=== PATIENT | male | born 1975 | race Caucasian/White ===

== ENCOUNTER 2019-11-20 11:20 | Inpatient (IN) | payer OTHER ==
[2019-11-20] MEDS ORDERED: Ondansetron PF 4 MG/2 ML Vial ONE (11:52)
[2019-11-20] MEDS ORDERED: Lidocaine Viscous Sol 2% 15 ml UD Cup ONE (11:52)
[2019-11-20] MEDS ORDERED: Ketorolac Tromethamine 30 MG/ML VIAL ONE (11:52)
[2019-11-20] MEDS ORDERED: Mag-Al 1200 mg/1200 mg/30 ML UDCUP ONE (11:52)
[2019-11-20 12:14] LABS: #Eosinphils 0.1 thou/uL (0.0-0.7); #Lymphocytes 1.8 thou/uL (1.20-3.40); #Monocytes 0.7 thou/uL (0.11-0.59); #Neutrophils 4.4 thou/uL (1.40-6.50); %Basophils 0.6 % (0.0-1.0); %Eosinophils 1.1 % (0.0-10.0); %Lymphocytes 25.7 % (21.0-51.0); %Monocytes 10.3 % (0.0-10.0); %Neutrophils 62.4 % (42.0-75.0); Hemoglobin 17.3 g/dL (14.0-18.0); Mean Corpuscular HGB CONC 31.7 g/dL (32.0-36.0); Mean Corpuscular Hemoglobin 29.2 pg (27.0-31.0); Mean Corpuscular Volume 91.9 fL (78.0-98.0); Mean Platelet Volume 8.6 fL (7.4-10.4); Platelet Count 272 thou/uL (130-400); RBC Distribution Width 13.2 % (11.5-14.5); Red Blood Cell (RBC) Count 5.92 mill/uL (4.70-6.10); White Blood Cell (WBC) Count 7.1 thou/uL (4.8-10.8)
[2019-11-20 12:19] LABS: ALT (SGPT) 278 U/L (8-55); AST (SGOT) 129 U/L (5-34); Albumin 4.5 g/dL (3.5-5.0); Alkaline Phosphatase 239 U/L (40-110); Anion Gap 20 mmol/L (10-20); BUN (Urea Nitrogen) 16 mg/dL (8.9-20.6); Bilirubin, Total 15.7 mg/dL (0.2-1.2); Calc. Creatinine Clearance 0 mL/min (70-130); Calcium 10.5 mg/dL (7.8-10.44); Carbon Dioxide 22 mmol/L (22-29); Chloride 98 mmol/L (98-107); Estimated GFR-MDRD 64; Glucose 110 mg/dL (70-105); Potassium 3.7 mmol/L (3.5-5.1); Protein, Total 8.5 g/dL (6.0-8.3); Sodium 136 mmol/L (136-145)
[2019-11-20 12:45] LABS: Lipase 9037 U/L (8-78)
[2019-11-20] MEDS ORDERED: Lorazepam 2 MG/ML VIAL ONE (12:57)
[2019-11-20 13:19] LABS: Bilirubin 2+ (Negative); Blood, Urine Negative (Negative); Clarity Turbid (Clear); Glucose, Urine (Dipstick) Normal (Negative); Leukocyte Negative Leu/uL (Negative); Nitrite Negative (Negative); Protein, Urine (Dipstick) 10 mg/dL (Neg-Trace); Urobilinogen Normal mg/dL (Less than 2)
[2019-11-20] MEDS ORDERED: Morphine 2 MG/ML SYRINGE SLOW IVP PRN (13:27)
[2019-11-20] MEDS ORDERED: hydrALAZINE 20 MG/ML VIAL SLOW IVP PRN (13:27)
[2019-11-20] MEDS ORDERED: Ondansetron PF 4 MG/2 ML Vial IVP PRN (13:27)
[2019-11-20] MEDS ORDERED: Lactated Ringer's 1,000 ML IV SCH (13:30)
[2019-11-20] MEDS ORDERED: Sodium Chloride 0.9% 1,000 ML IV SCH (13:30)
[2019-11-20] MEDS ORDERED: Ketorolac Tromethamine 30 MG/ML VIAL IVP SCH (14:15)
--- NOTE | 2019-11-20 14:39 | ULT ---
RIGHT UPPER QUADRANT ABDOMINAL ULTRASOUND: COMPARISON: None. HISTORY: Right upper quadrant pain and jaundice. TECHNIQUE: Multiplanar, rosenbaum scale, and color Doppler images were obtained in a right upper quadrant abdominal u ltrasound. FINDINGS: The liver is normal in echogenicity without focal lesions or intrahepatic ductal dilatation. There a re shadowing structures in the gallbladder which may represent gallstones. There is questionable dir ty shadowing and air within the gallbladder or gallbladder cannot be definitely excluded. There is n o gallbladder wall thickening or pericholecystic fluid. The common bile duct is normal measuring 4 m m. The pancreas could not be seen secondary to bowel gas. The right kidney is normal in echogenicity wi thout hydronephrosis or calculus and measured 11.2 cm in length. IMPRESSION: Cholelithiasis. Air within the gallbladder/gangrenous cholecystitis cannot be entirely excluded. A CT of the abdomen and pelvis with contrast is recommended for further evaluation. POS: EAA
--- NOTE | 2019-11-20 14:52 | HP ---
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 He has had similar episodes of less severe pain and was seen in [place] several months ago, and told he had gallstones. He did not have insurance, however, and could not tend to this. In the emergency room, he was evaluated and ultrasound revealed multiple gallstones with common bile duct of 3.8 mm. White count 7 and hemoglobin 17. Sodium 136, BUN and creatinine of 16 and 1.24, bilirubin is 15, AST 129, ALT 278, alkaline phosphatase 239, and lipase 9037. ALLERGIES: NONE. HABITS: Tobacco, cigars occasionally, almost daily use until the last week. Alcohol, 2 whiskeys twice a week, has not had any in a week. PAST SURGICAL HISTORY: Laparoscopic sleeve gastrectomy 2-3 years ago in the [facility], where he lives, more than 100-pound weight loss, resolving diabetes and hypertension. PAST MEDICAL HISTORY: Noncontributory. Diabetes and hypertension resolved after successful weight loss surgery. REVIEW OF SYSTEMS: Ten-point noncontributory. PHYSICAL EXAMINATION: VITAL SIGNS: Blood pressure 140/70, heart rate 88, respiratory rate 18. HEAD, EARS, EYES, NOSE, AND THROAT: Unremarkable. Sclerae icteric. LUNGS: Clear to auscultation. No wheezing. CARDIAC: Regular rate and rhythm. ABDOMEN: Soft. Tenderness in his upper abdomen, right upper quadrant, epigastrium. EXTREMITIES: Unremarkable. No ankle edema. LABORATORY DATA: As noted. ASSESSMENT AND PLAN: 1. Bariatric surgery status, status post sleeve gastrectomy with successful weight loss. 2. Cholelithiasis. 3. Pancreatitis. 4. Jaundice. RECOMMENDATIONS: Aggressive fluid hydration. Recheck liver function tests. Suspect biliary pancreatitis, although bilirubin is markedly elevated without common bile duct dilatation. We will see what his LFTs are tomorrow after aggressive fluid hydration and plan laparoscopic cholecystectomy, cholangiogram pending clinical course and laboratory testing tomorrow. Job ID: [id number]
[2019-11-20] MEDS: Morphine 4 MG/ML VIAL SLOW IVP PRN ×2 (15:39→21:12)
[2019-11-20] MEDS: Sodium Chloride 0.9% 1,000 ML IV SCH ×2 (15:39→18:27)
[2019-11-20] MEDS: Ketorolac Tromethamine 30 MG/ML VIAL IVP SCH (18:26)
[2019-11-20] MEDS: Enoxaparin Sodium 40 MG/0.4 ML SYRINGE SC SCH (21:14)
[2019-11-21] MEDS: Ketorolac Tromethamine 30 MG/ML VIAL IVP SCH ×4 (00:18→17:37)
[2019-11-21] MEDS: Sodium Chloride 0.9% 1,000 ML IV SCH ×3 (02:55→16:06)
[2019-11-21 06:02] LABS: ALT (SGPT) 171 U/L (8-55); AST (SGOT) 77 U/L (5-34); Albumin 3.3 g/dL (3.5-5.0); Alkaline Phosphatase 187 U/L (40-110); Anion Gap 15 mmol/L (10-20); BUN (Urea Nitrogen) 14 mg/dL (8.9-20.6); Calc. Creatinine Clearance 198 mL/min (70-130); Calcium 8.8 mg/dL (7.8-10.44); Carbon Dioxide 20 mmol/L (22-29); Chloride 105 mmol/L (98-107); Estimated GFR-MDRD Greater than 90; Globulin 3.3 g/dL (2.4-3.5); Glucose 90 mg/dL (70-105); Potassium 4.2 mmol/L (3.5-5.1); Protein, Total 6.6 g/dL (6.0-8.3); Sodium 136 mmol/L (136-145)
[2019-11-21 06:17] LABS: Lipase 3148 U/L (8-78)
[2019-11-21] MEDS ORDERED: Fentanyl 100 MCG/2 ML VIAL ONE ×3 (06:23→11:19)
[2019-11-21] MEDS ORDERED: Iothalamate Meglumine 60% 30 ML VIAL FS ONE ×2 (06:40→09:17)
[2019-11-21] MEDS ORDERED: Bupivacaine PF 0.5% 30 ML VIAL ONE (06:40)
[2019-11-21] MEDS ORDERED: Lidocaine 1% w/Epinephrine 1:100K 20 ML VIAL ONE (06:40)
[2019-11-21] MEDS ORDERED: Promethazine HCl 25 MG/ML VIAL SLOW IVP PRN (07:15)
[2019-11-21] MEDS ORDERED: PACU-Morphine 4MG/ML VIAL SLOW IVP PRN (07:15)
[2019-11-21] MEDS ORDERED: Ondansetron HCl/PF 4 MG/2 ML Vial IVP PRN (07:15)
[2019-11-21] MEDS ORDERED: Promethazine HCl 25 MG/ML VIAL IM PRN (07:15)
[2019-11-21] MEDS ORDERED: Meperidine HCl/PF 25 MG/ML VIAL SLOW IVP PRN (07:15)
[2019-11-21] MEDS ORDERED: Morphine Sulfate 2 MG/ML SYRINGE SLOW IVP PRN (07:15)
[2019-11-21] MEDS ORDERED: HYDROmorphone 2 MG/ML VIAL SLOW IVP PRN (07:15)
--- NOTE | 2019-11-21 09:37 | RAD ---
Exam: Intraoperative cholangiogram Exposure: 6.24 mg. 30 seconds FINDINGS: 2 intraoperative fluoroscopic images demonstrate cannulation of the cystic duct. Contrast o pacifies a normal caliber intrahepatic and extra hepatic biliary system. No obvious filling defects. Contrast is noted in the duodenum. IMPRESSION: Intraoperative fluoroscopy as above.
[2019-11-21] MEDS ORDERED: hydrALAZINE 20 MG/ML VIAL ONE (10:15)
[2019-11-21] MEDS ORDERED: Ketorolac Tromethamine 30 MG/ML VIAL IVP PRN (10:17)
[2019-11-21] MEDS ORDERED: Acetaminophen 500 MG TAB PO PRN (10:17)
[2019-11-21] MEDS ORDERED: traMADol HCl 50 MG TAB PO PRN ×2 (10:17)
[2019-11-21] MEDS ORDERED: Succinylcholine Chloride 20 MG/ML 10 ml SYRINGE FS ONE (11:28)
[2019-11-21] MEDS ORDERED: Ondansetron PF 4 MG/2 ML Vial ONE (11:28)
[2019-11-21] MEDS ORDERED: Lidocaine 1% PF 5 ML VIAL ONE (11:28)
[2019-11-21] MEDS ORDERED: Rocuronium Bromide 10 MG/ML (10ML VIAL) ONE (11:28)
[2019-11-21] MEDS ORDERED: Dexamethasone 20 MG/5 ML VIAL ONE (11:28)
[2019-11-21] MEDS ORDERED: PROPOFOL 200 MG/20 ML VIAL ONE (11:28)
[2019-11-21] MEDS ORDERED: Glycopyrrolate 0.2 MG/ML 5 ML SYRINGE ONE (11:28)
--- NOTE | 2019-11-21 12:18 | OP ---
DATE OF PROCEDURE: 11/21/2019 PREOPERATIVE DIAGNOSES: Biliary pancreatitis, suspect choledocholithiasis (common bile duct 4 mm by ultrasound, bilirubin 16 on admission, transaminases mid upper 100s on admission, history of alcohol use but none in the last [id number] prior to this presentation). POSTOPERATIVE DIAGNOSES: Biliary pancreatitis, suspect choledocholithiasis (common bile duct 4 mm by ultrasound, bilirubin 16 on admission, transaminases mid upper 100s on admission, history of alcohol use but none in the last qbnz-lvy-m-half prior to this presentation), cholecystitis, chronic and acute cholelithiasis, pancreatitis, choledocholithiasis. PROCEDURE PERFORMED: Laparoscopic video cholecystectomy, cholangiograms positive with distal filling defects although contrast into the duodenum. Core liver biopsy, laparoscopically visualized, normal-appearing liver (history of laparoscopic sleeve gastrectomy with significant weight loss and resolution of diabetes and hypertension with fatty liver, documented preoperatively for bariatric surgery). ANESTHESIA: General, fluoroscopy use, local anesthetic 0.5% Marcaine 30 mL mixed with 2% Xylocaine 20 mL. DESCRIPTION OF PROCEDURE: The patient was taken to the operating room where under general anesthesia, abdomen was clipped of hair, prepared with ChloraPrep and draped in routine fashion. Local anesthetic was infiltrated in the skin and subcutaneous tissue about the operative sites. Infraumbilical incision made. Pneumoperitoneum to 15 mmHg obtained with a Veress needle, replaced with a 5 port, laparoscope inserted. Right subxiphoid incision was made and an 11 port placed. Right subcostal incision was made at midclavicular entrance line, 5 port placed. The gallbladder was acutely inflamed with edematous wall. Liver appeared to be normal. Fundus of the gallbladder was grasped at the cephalad and omental adhesions taken down with blunt and sharp dissection, using cautery for hemostasis, dissecting the cystic artery and duct free with a critical view obtained. Cystic duct was dilated. Cystic artery was doubly clipped proximally and the cystic duct singly clipped on the gallbladder side, although clip would not reach across it and it was incompletely occluded. Opening made in the cystic duct. The patient had been given glucagon by Anesthesia. Cystic duct remnants milked retrograde noting a few stone debris milked out. Cholangiocatheter inserted and cholangiogram was obtained. Initially flushed catheter with saline solution and then with contrast, under fluoroscopy cholangiograms revealed a slightly dilated common bile duct emptying into the duodenum without identification of tapering and suspect choledocholithiasis. Bile duct was irrigated with saline and cholangiogram was repeated again. These filling defects persisted suggesting choledocholithiasis. Once the cholangiograms were complete, cholangiocatheter removed, and cystic ducts too broad to be occluded by clips. Thus, an 11 mm subxiphoid port exchanged for 12 port and cystic duct divided with the Endo-EMMIE 45 white load stapler. Stapled cystic duct was secure and cystic artery divided between clips and the gallbladder dissected free from inflammatory adhesions from the liver bed obtaining good hemostasis. Removed the gallbladder and contents and submitted to Pathology. Good hemostasis assured with cautery. Core liver biopsies obtained with core biopsy gun from the right lobe laterally. Obtain two good cores. Hemostasis gained with cautery. Irrigant and pneumoperitoneum were evacuated. All instruments were removed. All skin incisions were approximated with interrupted subdermal 4-0 Monocryl and [place] glue applied. Dr. Oneal had been consulted and plans for an ERCP tomorrow. Job ID: [id number]
[2019-11-21] MEDS: Lactated Ringer's 1,000 ML IV SCH ×2 (13:25→20:36)
[2019-11-21] MEDS: Pantoprazole 40 MG VIAL IVP SCH (13:26)
--- NOTE | 2019-11-21 14:26 | EKG ---
Test Reason : Blood Pressure : / mmHG Vent. Rate : 075 BPM Atrial Rate : 075 BPM P-R Int : 184 ms QRS Dur : 086 ms QT Int : 382 ms P-R-T Axes : 046 030 044 degrees QTc Int : 426 ms Normal sinus rhythm Normal ECG Confirmed by RADHA JOHNSON DO ([id number]), scientific editor JAYDON DRAPER ([id number]) on 11/21/2019 2:25:29 PM Referred By: Confirmed By:RADHA JOHNSON DO
[2019-11-21] MEDS: Morphine 4 MG/ML VIAL SLOW IVP PRN (14:45)
[2019-11-21] MEDS: Enoxaparin Sodium 40 MG/0.4 ML SYRINGE SC SCH (20:30)
[2019-11-22] MEDS: Ketorolac Tromethamine 30 MG/ML VIAL IVP SCH ×3 (00:11→11:32)
[2019-11-22] MEDS: Lactated Ringer's 1,000 ML IV SCH ×4 (02:27→13:37)
[2019-11-22 05:22] LABS: #Basophils 0.1 thou/uL (0.0-0.2); #Lymphocytes 1.1 thou/uL (1.20-3.40); #Monocytes 0.8 thou/uL (0.11-0.59); #Neutrophils 8.7 thou/uL (1.40-6.50); %Basophils 1.1 % (0.0-1.0); %Eosinophils 0.1 % (0.0-10.0); %Lymphocytes 9.9 % (21.0-51.0); %Monocytes 7.8 % (0.0-10.0); %Neutrophils 81.1 % (42.0-75.0); Hemoglobin 14.5 g/dL (14.0-18.0); Mean Corpuscular HGB CONC 33.6 g/dL (32.0-36.0); Mean Corpuscular Hemoglobin 31.2 pg (27.0-31.0); Mean Platelet Volume 8.3 fL (7.4-10.4); Platelet Count 217 thou/uL (130-400); RBC Distribution Width 13.3 % (11.5-14.5); Red Blood Cell (RBC) Count 4.65 mill/uL (4.70-6.10); White Blood Cell (WBC) Count 10.7 thou/uL (4.8-10.8)
[2019-11-22 05:42] LABS: ALT (SGPT) 165 U/L (8-55); AST (SGOT) 108 U/L (5-34); Albumin 3.1 g/dL (3.5-5.0); Alkaline Phosphatase 186 U/L (40-110); Anion Gap 13 mmol/L (10-20); BUN (Urea Nitrogen) 10 mg/dL (8.9-20.6); Bilirubin, Total 10.5 mg/dL (0.2-1.2); Calc. Creatinine Clearance 223 mL/min (70-130); Calcium 8.9 mg/dL (7.8-10.44); Carbon Dioxide 23 mmol/L (22-29); Chloride 104 mmol/L (98-107); Estimated GFR-MDRD Greater than 90; Globulin 3.1 g/dL (2.4-3.5); Glucose 121 mg/dL (70-105); Protein, Total 6.2 g/dL (6.0-8.3); Sodium 136 mmol/L (136-145)
[2019-11-22 05:55] LABS: Lipase 1803 U/L (8-78)
[2019-11-22 06:01] LABS: HBCM Index 0.04 S/CO (0-0.79); HBSAg Index 0.26 S/CO (0-0.99); Hep A IgM AB Non-Reactive (NonReactive); Hep A IgM S/CO 0.22 S/CO (0-0.79); Hep B Surf Ag Non-Reactive S/CO (NonReactive); Hep C IgG Ab Non-Reactive (NonReactive); Hepatitis B Core IgM Abs Non-Reactive (NonReactive)
--- NOTE | 2019-11-22 08:53 | CON ---
DATE OF CONSULTATION: 11/21/2019 REASON FOR CONSULTATION: Abnormal LFTs and possible common bile duct stone. As per Dr. Woods, he felt there was an abdominal cholangiogram with some filling defects. HISTORY OF PRESENT ILLNESS: Mr. Chevy Persaud is a 44-year-old male, who lives near [place], [place]. He does come to [facility] for business related purposes. The patient has noted gallstones from before. He did not have surgery because of lack of finances. He has history of diabetes mellitus, hypertension in the past. He had a gastric sleeve surgery in 2017 and has lost more than 100 pounds. Since weight loss, he does not take any medicines for diabetes or hypertension. The patient developed severe abdominal pain with some nausea and some retching yesterday. He was seen in the ER and was found to have evidence of a gallstone pancreatitis and also abnormal LFTs. His serum lipase was elevated to 9037. Today it has come down to 3148. His abdominal pain has markedly improved. He underwent a laparoscopic cholecystectomy by Dr. Andrés Woods. He underwent a cholangiogram and Dr. Woods felt there was some filling defects. However, the contrast freely flowed into the duodenum. There was no bile duct dilatation. He has a radiologist, who does not think there is any retained stone. There is a possibility of injected air bubbles. The patient was seen in the room after his laparoscopic cholecystectomy this afternoon. He is awake, alert, and communicative. Feeling a whole lot better. He has abdominal soreness from the surgery from this morning. The severe pain has actually resolved. He has no relevant symptoms. ALLERGIES: NONE. SOCIAL HISTORY: The patient smokes cigars. He also drinks two shots of whiskey every three times a week. No history of drug abuse. MEDICAL ILLNESS: 1. Obesity, status post gastric surgery with weight loss. 2. Diabetes mellitus. 3. Hypertension. 4. History of fatty liver. PAST SURGICAL HISTORY: None except laparoscopic cholecystectomy this morning. FAMILY HISTORY: Mother had gallstones and hypertension. Father had diabetes mellitus. Grandmother had her gallbladder removed. No family history of any cancer. REVIEW OF SYSTEMS: Unremarkable except for abdominal pain, nausea, retching etc. PHYSICAL EXAMINATION: GENERAL: He appears very comfortable. He is awake, alert, communicative. VITAL SIGNS: He is afebrile. Pulse is 94, blood pressure 150/92. He is icteric. NECK: Supple. No adenitis or thyromegaly noted. CARDIOVASCULAR SYSTEM: First and second heart sounds heard. LUNGS: Clear to auscultation. ABDOMEN: Nondistended. Soft. He is mildly tender across the abdomen. There is no rebound or guarding. He has active bowel sounds. EXTREMITIES: No edema. LABORATORY DATA: From yesterday; lytes are normal. BUN is 16, creatinine is 1.24, glucose 110, calcium 10.5, bilirubin 15.7, AST 129, ALT 278, alkaline phosphatase 239, albumin 4.5. Today, liver function tests are coming down, bilirubin down to 14, AST 77, ALT 171, alkaline phosphatase 187. Serum lipase yesterday was 9037, today 3148. His CBC is actually normal. Hemoglobin 17.3, hematocrit 54.4, MCV 91.9, platelet count 272,000. Abdominal sonogram showed gallstone, but no dilation of common bile duct. CBD measured only about 3.8 mm. A cholangiogram done today shows questionable filling defects, but the contrast flows freely into the duodenum. The radiologist does not feel that there is definitely retained gallstones, although there is some shadowing seen. CLINICAL IMPRESSION: 1. Gallstone pancreatitis, status post surgery, questionable abnormal cholangiogram. 2. History of fatty liver. 3. Diabetes mellitus. 4. Hypertension. 5. Obesity, status post gastric surgery with weight loss. 6. Gallstone pancreatitis seems to be getting better. I had a long talk with the patient explaining about the equivocal findings of the cholangiogram. The liver function tests that we had are proportionate for some of the common bile duct stone. It is possible that the patient could have passed a common bile duct stone. The duct is not dilated and also the contrast was freely flowing into the duodenum during cholangiogram. This was discussed with the patient. I explained to him that we will repeat the liver function tomorrow and depending upon the numbers, we will decide whether he needs ERCP. Other option is he could have an MRCP.However, if positive will need ERCP . RECOMMENDATION: 1. Obtain hepatitis markers. 2. Repeat LFTs and decide whether he needs ERCP tomorrow. Job ID: [id number] MTDD
[2019-11-22] MEDS ORDERED: Iothalamate Meglumine 60% 30 ML VIAL FS ONE ×2 (09:21→10:08)
[2019-11-22] MEDS ORDERED: Indomethacin 50 MG SUPP ONE ×2 (09:26→09:27)
[2019-11-22] MEDS ORDERED: Aspirin 325 mg Enteric Coated Tablet ONE (09:26)
[2019-11-22] MEDS ORDERED: Midazolam HCl 2 mg/2 ml Vial ONE (09:29)
[2019-11-22] MEDS ORDERED: Fentanyl 100 MCG/2 ML VIAL ONE (09:29)
--- NOTE | 2019-11-22 11:17 | RAD ---
ERCP X-RAY: COMPARISON: Gallbladder ultrasound from 11/20/2019. FINDINGS: Multiple images were obtained from the fluoroscopy suite. IMPRESSION: Fluoroscopy for procedural purposes. POS: HOME
[2019-11-22] MEDS ORDERED: Glycopyrrolate 0.2 MG/ML 5 ML SYRINGE ONE (11:51)
[2019-11-22] MEDS ORDERED: Succinylcholine Chloride 20 MG/ML 10 ml SYRINGE FS ONE (11:51)
[2019-11-22] MEDS ORDERED: Lidocaine 1% PF 5 ML VIAL ONE (11:51)
[2019-11-22] MEDS ORDERED: Ondansetron PF 4 MG/2 ML Vial ONE (11:51)
[2019-11-22] MEDS ORDERED: PROPOFOL 200 MG/20 ML VIAL ONE (11:51)
[2019-11-22] MEDS ORDERED: Rocuronium Bromide 10 MG/ML (10ML VIAL) ONE (11:51)
--- NOTE | 2019-11-22 12:25 | OP ---
DATE OF PROCEDURE: 11/22/2019 PROCEDURES PERFORMED: 1. Endoscopic retrograde cholangiopancreatography with papillotomy. 2. Endoscopic retrograde cholangiopancreatography with balloon extraction of common bile duct stones x3. PREOPERATIVE DIAGNOSES: Gallstone pancreatitis, abnormal liver function tests, abnormal cholangiogram. POSTOPERATIVE DIAGNOSES: 1. The common bile duct is nondilated. 2. There were no definite filling defects seen, but after the papillotomy and passing the balloon, there were 3 pigmented stones removed. DESCRIPTION OF PROCEDURE: The patient was intubated and was given sedation by Anesthesia Department. The patient was given Indocin 50 mg suppository prophylactically before the procedure. The patient was transferred to the fluoroscopy table and turned onto left lateral position and then on his stomach. A bite block was placed. A [employer] video duodenoscope under direct vision was passed down to the oropharynx past the GE junction into the stomach and subsequently descending duodenum. The papilla was identified. The papilla was cannulated over a guidewire selectively without any difficulty. Upon injection of contrast, I do not appreciate any filling defects There was something on fluoroscopy. On recovery, I did get a good view of the bile duct and no definite filling defects. Initially, the contrast was selected with saline. However, after receiving the full strength contrast, the injection again showed a normal caliber bile duct, but no definite filling defects. Because of the operative cholangiogram showing filling defects, I decided to go on with a papillotomy. The papillotomy was made at 12 o'clock position. A generous papillotomy to about 1.5 cm was made. Following the papillotomy, a brisk bile and also two bile duct stones came out. The stones appeared pigmented and measured more probably about 8 to 9 mm. The papillotome was changed to balloon, size 9 to 12 mm. The balloon was inflated and brought across the papilla several times. There was one more stone extracted. Occlusion cholangiogram showed no more filling defects. Also, the bile duct emptied properly. The stomach decompressed and the scope removed. RECOMMENDATIONS: 1. Discontinue n.p.o. 2. Clear liquid diet. 3. Repeat LFTs tomorrow. If he does well without any complications, consider discharge home tomorrow. Job ID: [id number] [facility]
[2019-11-22] MEDS: Pantoprazole 40 MG VIAL IVP SCH (13:36)
[2019-11-22] MEDS ORDERED: Ibuprofen 600 MG TAB PO PRN (16:36)
[2019-11-22 19:41] VITALS: BP 159/89; TEMP 98.6
--- NOTE | 2019-11-23 03:11 | DIS ---
DATE OF ADMISSION: 11/20/2019 DATE OF DISCHARGE: 11/22/2019 DISCHARGE DIAGNOSES: Cholecystitis, acute on chronic cholelithiasis, choledocholithiasis, biliary pancreatitis, and obesity. PROCEDURES DURING THIS HOSPITALIZATION: Ultrasound of the gallbladder, laparoscopic video cholecystectomy, cholangiograms that I felt were positive with filling defects; however, radiology read them as normal. On 11/22/2019, Dr. Oneal performed ERCP with stone extraction. Note, admission bilirubin 15.7, morning of his cholecystectomy 14, postoperative cholecystectomy and just prior to ERCP with stone extraction bilirubin 10.5. AST and ALT are 108 and 165 respectively on discharge. Lipase 9037 on admission, on discharge 1803. HISTORY: A 44-year-old male patient with biliary symptoms, having had an ultrasound performed in the emergency room in the [place] area, but he did not have financial resources to tend to this. 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 The patient had severe onset of abdominal pain and presented to [facility] emergency room, undergoing ultrasound noting gallstones, normal bile duct caliber 4 mm and liver function tests are noted above. He was admitted, given intravenous fluids, aggressively hydrated. The next morning, his lipase improved. He is feeling better. He underwent laparoscopic cholecystectomy, cholangiograms that I interpreted are probably filling defects, even though there was emptying into the duodenum and not severely enlarged bile duct. Dr. Oneal was consulted. Radiology interpreted the cholangiogram was normal. By the next morning, the patient's liver function tests slightly improved, nonetheless considering these concerns, ERCP with stone extraction performed, post ERCP same day he is discharged home. He will take [id number] Tylenol, Motrin, and Ultram p.r.n. pain. Ultram 50, #25 given. Diet and activity as tolerated. No lifting restrictions. He is to have liver function tests drawn the morning of office followup. To follow up his liver function test should they returned to normal. Job ID: [id number]
== END 2019-11-22 19:50 | disposition home or self-care (01) | DRG 417 ==
LOC: ERS 11:20 → SURG B 13:27
PROVIDERS: ADMIT Specialist; ATTEND Specialist
PROC: 0FT44ZZ Resection of Gallbladder, Percutaneous Endoscopic Approach (ICD-10-PCS; principal; 2019-11-21)
PROC: BF141ZZ Fluoroscopy of Gallbladder, Bile Ducts and Pancreatic Ducts using Low Osmolar Contrast (ICD-10-PCS; 2019-11-21)
PROC: 0FB13ZX Excision of Right Lobe Liver, Percutaneous Approach, Diagnostic (ICD-10-PCS; 2019-11-21)
PROC: 0FC98ZZ Extirpation of Matter from Common Bile Duct, Via Natural or Artificial Opening Endoscopic (ICD-10-PCS; 2019-11-22)
PROC: BF131ZZ Fluoroscopy of Gallbladder and Bile Ducts using Low Osmolar Contrast (ICD-10-PCS; 2019-11-22)
DX: K80.46 Calculus of bile duct with acute and chronic cholecystitis without obstruction (principal); K85.10 Biliary acute pancreatitis without necrosis or infection; E66.9 Obesity, unspecified; E11.9 Type 2 diabetes mellitus without complications; I10 Essential (primary) hypertension; F17.210 Nicotine dependence, cigarettes, uncomplicated; K76.0 Fatty (change of) liver, not elsewhere classified; E78.5 Hyperlipidemia, unspecified; G47.33 Obstructive sleep apnea (adult) (pediatric); Z68.38 Body mass index [BMI] 38.0-38.9, adult; Z98.84 Bariatric surgery status; Z79.4 Long term (current) use of insulin
CPT/HCPCS: 36415; 47532; 74330; 76705; 80053; 80074; 81003; 83690; 85025; 88304; 88307; 88313; 93005; 96361; 96374; 96375; C9113; J0360; J1100; J1610; J1650; J1885; J1956; J2001; J2060; J2250; J2270; J2405; J2704; J3010; S0020